=== PATIENT | female | born 1990 | race Caucasian/White ===

== ENCOUNTER → 2016-12-02 | Outpatient (CLI) | payer OTHER ==
[~2016-12-02] MED LIST: ALBUTEROL20 ml INH; CELEXA10 M1 PO; CELEXA10 MG PO; CLARITIN10 M2 PO; CLARITIN10 M3 PO; FLONASE ALLERG9.9 ML INH; PERCOCET 2.5/321 TAB PO; SEROQUEL25 MG PO
[2016-12-02 14:59] LABS: HEMATOCRIT 37.5 % (35.0-45.0); HEMOGLOBIN 12.7 gm/dL (12.0-16.0); MEAN CELL VOLUME 86.3 FL (83-96); MEAN CORPUSCULAR HEMOGLOBIN 29.2 PG (28-34); MEAN CORPUSCULAR HGB CONC 33.9 g/dL (30-36); MEAN PLATELET VOLUME 7.9 FL (6.5-11.5); RED BLOOD COUNT 4.35 X10e (3.90-5.30); WHITE BLOOD COUNT 6.4 X10e3 (4.0-10.5)
[2016-12-02 15:22] LABS: BLOOD UREA NITROGEN 7 mg/dL (9-23); CALCIUM SERUM 9.4 mg/dL (8.4-10.2); CARBON DIOXIDE 28 mmol/L (22-31); CHLORIDE 104 mmol/L (100-111); CREATININE SERUM 0.7 mg/dL (0.6-1.4); GLOM FILT RATE Estimated ABOVE60 mL/min (>60); GLUCOSE FASTING 92 mg/dL (70-110); POTASSIUM 4.1 mmol/L (3.5-5.1); SODIUM 139 mmol/L (135-145)
== END | disposition home or self-care (01) ==
LOC: CAMB 13:26
PROVIDERS: Orthopaedic Surgery
DX: Z01.812 Encounter for preprocedural laboratory examination (principal)
CPT/HCPCS: 36415; 80048; 85027

== ENCOUNTER 2016-12-11 16:33 | Emergency (ER) | payer OTHER ==
[2016-12-11 16:12] LABS: URINE SOURCE CLEAN CATCH
[2016-12-11 16:22] LABS: URINE APPEARANCE CLEAR; URINE BILIRUBIN NEG (NEG); URINE BLOOD NEG (NEG); URINE COLOR YELLOW; URINE GLUCOSE NEG (NEG); URINE KETONE NEG (NEG); URINE LEUKOCYTE ESTERASE TRACE (NEG); URINE NITRATE NEG (NEG); URINE PROTEIN NEG (NEG); URINE SPECIFIC GRAVITY 1.009 (1.003-1.035); URINE UROBILINOGEN 0.2 MG/DL (NEG)
[2016-12-11 16:25] LABS: URBCS1 AUWI 0-2 /[HPF] (0-2); URINE BACTERIA AUWI NEG (NEGATIVE); URINE SQUAMOUS EPITHELIAL CELL NONE SEEN /[HPF]; UWBCS1 AUWI 0-2 (0-5)
[2016-12-11 16:27] LABS: CULTURE INDICATED? NO
== END 2016-12-11 17:47 | disposition home or self-care (01) ==
LOC: CED 16:33
PROVIDERS: Emergency Medicine
DX: M54.5 Low back pain (principal); Z91.040 Latex allergy status
CPT/HCPCS: 81003; 84703; 99283

== ENCOUNTER → 2016-12-16 | Day surgery (SDC) | payer OTHER ==
--- NOTE | ~2016-12-16 | OR ---
Unit #: [id number] #: [id number] Patient: FREDERIC UREÑA [id number] [address] [place], [place] [address] [id number] O MR#: [id number] NAME: FREDERIC UREÑA ROOM: Date of Procedure: 12/16/2016 Admission Date: 12/16/2016 Surgeon: Daniel Gore M.D. : 1990 Attending Physician: Daniel Gore M.D. Primary Care Physician: Generic Doctor Not In System OPERATIVE REPORT POSTOPERATIVE DIAGNOSIS Left grade 5 acromioclavicular separation. POSTOPERATIVE DIAGNOSIS Left grade 5 acromioclavicular separation. PROCEDURE PERFORMED Left coracoclavicular ligament reconstruction and acromioclavicular joint stabilization. WEB USER EXPERIENCE STRATEGIST Deborah Gracia, PGY2. IMPLANTS 1. A lock-down surgical AC joint stabilization device, size 9 with a 24 mm screw and washer. 2. RTI Surgical semitendinosus allograft, single strand, diameter 5 mm. ANESTHESIA General with interscalene nerve block. ESTIMATED BLOOD LOSS 25 mL. COMPLICATIONS None apparent. INDICATIONS Davidson is a 26-year-old female with a high-grade AC separation of the left shoulder. We attempted closed treatment and she continued to be symptomatic about the AC joint with limited range of motion with pain and interruption of daily activities. We discussed the CC ligament reconstruction including risks of failure and other related complications. She elected to proceed. DESCRIPTION OF PROCEDURE The patient was identified in the preoperative holding area. The operative site was marked. A preoperative antibiotic was administered. Regional anesthetic block was performed. The patient was brought to the operating room and placed supine on the operating table. A general anesthetic was induced. The patient was then positioned into the beach-chair position. Unit #: [id number] #: [id number] Patient: FREDERIC UREÑA A saber style incision was made over the shoulder just medial to the AC joint centered approximately over the coracoid. Dissection was carried down through subcutaneous tissues. The deltotrapezial fascia was identified and divided in line with the clavicle. The periosteum was then elevated anteriorly and posteriorly and the distal extent of the clavicle skeletonized and mobilized. The distal clavicle excision was not performed. The dissection was then carried down to the coracoid itself. The coracoid was exposed along both medial and lateral aspects. Two Hohmanns were placed around the coracoid and then the passing device passed from medial to lateral. C-arm imaging was obtained to confirm this was in the desired location. We then passed the length cage for the lock-down surgical device and measured the length of the implant with the clavicle in a reduced position. Again this was confirmed by C-arm imaging. The size measured 9. The real implant was opened. The allograft had been opened and previously soaked in saline. The length gauge was then used to pass the real lock-down surgical implant along with a passing suture for the graft. The graft was then passed separately. The graft was then passed around the clavicle with one limb anteriorly and one limb posteriorly. We did not pass the graft through transosseous tunnels in the clavicle itself. The lock-down implant was then placed around the clavicle. We marked our desired drill site and drilled bi-cortically through the clavicle and measured to size 20. We then added 4 mm to account for the implant and the washer. We selected a size 24 screw. This was passed through the loop in the implant and the clavicle held in a reduced position. The screw was advanced bicortically and satisfactory purchase was achieved. A final image was obtained and demonstrated anatomic position of the clavicle relative to the acromion. The graft was then passed over itself from the first limb of a square knot. This was held in a secure position and then oversewn with #2 FiberWire suture. The graft was then checked and was stable as well. The wound was then irrigated. Final images were obtained and demonstrated an anatomic reduction of the AC joint. The deltotrapezial fascia was then closed with 0 Vicryl. Subcutaneous tissues were closed with 2-0 Vicryl and the skin with 4-0 Monocryl. Steri-Strips and sterile dressings were applied. DISPOSITION Stable to the recovery room. Dictated by... Jazmin Michael/lara TD: 12/17/2016 02:44 JOB #: [id number] OPERATIVE REPORT X Daniel Gore MD PROCEDURE OPERATIVE NOTE
--- NOTE | ~2016-12-16 | CR77 ---
[facility] A Service of [facility] RADIOLOGY TEXT RESULTS PATIENT: FREDERIC UREÑA LOCATION: [facility] : 90 UNIT #: [id number] AGE: [address]: Daniel Gore MD SEX: F ORDER DR: [id number] [facility] [address] [place], [place] [address] [id number] O MR#: [id number] Acc #: [id number] NAME: FREDERIC UREÑA : 1990 SEX: F STUDY DATE/TIME: 12/16/2016 9:19 UNIT: [facility] ROOM: STUDY DESCRIPTION: CR Clavicle Comp Lt Attending Physician: Daniel Gore M.D. Ordering Physician: Daniel Gore M.D. Primary Care Physician: Generic Doctor Not In System MEDICAL IMAGING REPORT This report is preliminary unless electronic signature is present EXAM C-arm fluoroscopy with 2 permanent images of the left clavicle, 12/16/2016 HISTORY Left AC joint repair in OR. Plain film radiographs dated 09/08/2016 demonstrated separation of the left acromioclavicular joint. FINDINGS C-arm fluoroscopy was provided for use in the operating room. 2 spot film radiographs of the left shoulder were obtained in the and lateral projections documenting surgical repair of the left acromioclavicular joint. The distal left clavicle and acromion are now in anatomic apposition. 0.23 minutes of fluoroscopy time was utilized. Dictated by... Daniel Duarte M.D. THIS IS AN ELECTRONICALLY VERIFIED REPORT Daniel Duarte M.D. at 12/16/2016 5:03 PM GAVIN/charla TD: 12/16/2016 15:57 JOB #: [id number] MEDICAL IMAGING REPORT COPY
== END | disposition home or self-care (01) ==
LOC: CSUR 05:52
DX: S43.102A Unspecified dislocation of left acromioclavicular joint, initial encounter (principal); J45.909 Unspecified asthma, uncomplicated; M41.9 Scoliosis, unspecified; Z98.51 Tubal ligation status; Z91.040 Latex allergy status; Z79.51 Long term (current) use of inhaled steroids; Z79.899 Other long term (current) drug therapy; Z79.891 Long term (current) use of opiate analgesic; Z87.891 Personal history of nicotine dependence; Z86.2 Personal history of diseases of the blood and blood-forming organs and certain disorders involving the immune mechanism; Z82.5 Family history of asthma and other chronic lower respiratory diseases; Z81.8 Family history of other mental and behavioral disorders; Z82.61 Family history of arthritis; Z82.3 Family history of stroke; Z82.49 Family history of ischemic heart disease and other diseases of the circulatory system; Z83.3 Family history of diabetes mellitus; X58.XXXA Exposure to other specified factors, initial encounter
CPT/HCPCS: 73000; 76001; 84703; C1713; C1762; J0690; J2250; J2405; J2710; J3010

== ENCOUNTER 2017-03-31 16:25 | Emergency (ER) | payer OTHER ==
--- NOTE | ~2017-03-31 | EKG ---
PATIENT: FREDERIC UREÑA UNIT #: [id number] Ventricular Rate: 61 BPM Atrial Rate: 61 BPM P-R Interval: 122 ms QRS Duration: 94 ms Q-T Interval: 416 ms QTC Calculation(Bezet): 418 ms P [place]: 65 degrees Calculated R [place]: 81 degrees Calculated T [place]: 60 degrees Diagnosis Line: Normal sinus rhythm Diagnosis Line: RSR' or QR pattern in V1 suggests right Diagnosis Line: ventricular conduction delay Diagnosis Line: Borderline ECG Diagnosis Line: No previous ECGs available Diagnosis Line: Confirmed by RYLIE FINK MD ([id number]) on 04/01/2017 Diagnosis Line: 8:23:49 PM INTERPRETING MD: ALEKS TINOCO
[2017-03-31 17:58] LABS: BASOPHIL# 0.1 X10e3 (0-0.3); BASOPHIL% 1.1 % (0-2.5); EOSINOPHIL# 0.2 X10e3 (0-0.7); HEMOGLOBIN 12.9 gm/dL (12.0-16.0); LYMPHOCYTE# 2.4 X10e3 (1.0-3.5); LYMPHOCYTE% 37.1 % (17.0-45.0); MEAN CELL VOLUME 85.5 FL (83-96); MEAN CORPUSCULAR HEMOGLOBIN 28.4 PG (28-34); MEAN CORPUSCULAR HGB CONC 33.2 g/dL (30-36); MONOCYTE# 0.3 X10e3 (0-1.0); MONOCYTE% 5.2 % (3.0-12.0); NEUTROPHIL# 3.5 X10e3 (1.5-7.1); NEUTROPHIL% 53.6 % (40-75); PLATELET COUNT 258 X10e3 (140-420); RED BLOOD COUNT 4.56 X10e (3.90-5.30); WHITE BLOOD COUNT 6.5 X10e3 (4.0-10.5)
[2017-03-31 17:59] LABS: DIFF IND NO
[2017-03-31 18:23] LABS: ALBUMIN SERUM 5.1 g/dL (3.5-5.0); BILIRUBIN, DIRECT 0.1 mg/dL (0.0-0.2); BILIRUBIN,INDIRECT 0.4 mg/dL (0.0-0.9); BILIRUBIN,TOTAL 0.5 mg/dL (0.2-2.0); BUN/CREATININE RATIO 12.85; CALCIUM SERUM 9.8 mg/dL (8.4-10.2); CREATININE SERUM 0.7 mg/dL (0.6-1.4); GLOM FILT RATE Estimated 119.6 mL/min (>60); POTASSIUM 3.7 mmol/L (3.5-5.1); PROTEIN TOTAL SERUM 7.8 g/dL (6.0-8.3)
[2017-03-31 19:33] LABS: URINE SOURCE CLEAN CATCH
[2017-03-31 19:37] LABS: POC - CKMB <1.0 ng/mL (0.0-7.9); POC - TROPONIN <0.05 ng/mL (<=0.05)
[2017-03-31 19:37] LABS: URINE APPEARANCE CLEAR; URINE BILIRUBIN NEG (NEG); URINE BLOOD TRACE (NEG); URINE COLOR YELLOW; URINE GLUCOSE NEG (NEG); URINE KETONE NEG (NEG); URINE LEUKOCYTE ESTERASE NEG (NEG); URINE NITRATE NEG (NEG); URINE PROTEIN NEG (NEG); URINE SPECIFIC GRAVITY 1.004 (1.003-1.035); URINE UROBILINOGEN 0.2 MG/DL (NEG)
[2017-03-31 19:39] LABS: URBCS1 AUWI 0-2 /[HPF] (0-2); URINE BACTERIA AUWI NEG (NEGATIVE); URINE SQUAMOUS EPITHELIAL CELL NONE SEEN /[HPF]; UWBCS1 AUWI 0-2 (0-5)
[2017-03-31 19:48] LABS: CULTURE INDICATED? NO
== END 2017-03-31 20:19 | disposition home or self-care (01) ==
LOC: CED 16:25
PROVIDERS: Student in an Organized Health Care Education/Training Program
DX: R42 Dizziness and giddiness (principal); J45.909 Unspecified asthma, uncomplicated; Z91.040 Latex allergy status
CPT/HCPCS: 36415; 80048; 80076; 81003; 82553; 84484; 84702; 84703; 85025; 93005; 99284

== ENCOUNTER 2017-06-19 21:00 | Emergency (ER) | payer OTHER ==
[~2017-06-19] VITALS: Ht 152.4 cm; Wt 55.8 kg
--- NOTE | ~2017-06-19 | CR229 ---
[facility] A Service of [facility] RADIOLOGY TEXT RESULTS PATIENT: FREDERIC UREÑA LOCATION: [facility] : 90 UNIT #: [id number] AGE: [address]: Krystina Springer APRN SEX: F ORDER DR: [id number] [facility] [address] [facility] [address] [facility] [place], [place] [address] [id number] E MR#: [id number] Acc #: [id number] NAME: FREDERIC UREÑA : 1990 SEX: F STUDY DATE/TIME: 06/19/2017 22:35 UNIT: [facility] ROOM: STUDY DESCRIPTION: CR Shoulder Min 2 View Lt Attending Physician: Krystina Springer A.P.R.N. Ordering Physician: Krystina Springer A.P.R.N. Primary Care Physician: Primary Care Physician No MEDICAL IMAGING REPORT This report is preliminary unless electronic signature is present EXAM Left shoulder, 06/19/2016 HISTORY 26-year-old female in the ED with left shoulder pain after multiple recent falls over the last 2 days, most recently yesterday. Past history of shoulder surgery. TECHNIQUE Three-view left shoulder series. FINDINGS No acute fracture or dislocation is demonstrated. There is a fixation screw in the distal clavicle likely related to coracoclavicular ligament repair potentially for previous AC joint separation injury. Minimal AC joint malalignment visible on the previous study of 12/26/2016 is no longer seen today. There is some bone loss involving the distal clavicle, which could be due to interval surgical resection changes or osteolysis. Remainder of the examination is negative. IMPRESSION 1. No acute osseous abnormality. 2. Postoperative changes as noted above. Dictated by... Luis Armando Walker M.D. THIS IS AN ELECTRONICALLY VERIFIED REPORT Luis Armando Walker M.D. at 06/21/2017 6:02 AM IVETTEW/kristina [facility] A Service of [facility] RADIOLOGY TEXT RESULTS PATIENT: FREDERIC UREÑA LOCATION: [facility] : 90 UNIT #: [id number] AGE: [address]: Krystina Springer APRN SEX: F ORDER DR: TD: 06/20/2017 23:47 JOB #: [id number] MEDICAL IMAGING REPORT Page 1 of 1 COPY
== END 2017-06-19 23:10 | disposition home or self-care (01) ==
LOC: CED 21:00 → CFTX 21:00 → CED 21:53 → CFTX 23:10
DX: S43.402A Unspecified sprain of left shoulder joint, initial encounter (principal); W19.XXXA Unspecified fall, initial encounter
CPT/HCPCS: 73030; 84703; 99283